=== PATIENT | female | born 1950 | race Caucasian/White ===

== ENCOUNTER → 2017-02-17 | Outpatient (CLI) | payer MEDICARE, OTHER | END | disposition home or self-care (01) | LOC: GMAH 14:02 | PROVIDERS: ATTEND Family Medicine | DX: E03.9 Hypothyroidism, unspecified (principal); E78.2 Mixed hyperlipidemia ==

== ENCOUNTER → 2017-02-23 | Outpatient (CLI) | payer MEDICARE, OTHER ==
--- NOTE | 2017-02-24 11:06 | US ---
EXAM DESCRIPTION: Carotid Duplex: Ultrasound. CLINICAL HISTORY: OCCLUSION AND STENOSIS OF LT CAROTID COMPARISON: 3-D breast tomosynthesis screening mammogram on the same visit. TECHNIQUE: Transcutaneous scanning utilizing 2-dimensional and Doppler modes to evaluate the bilateral carotid systems and vertebral arteries. Percentage of diameter of stenosis or no stenosis recorded will be based upon NASCET criteria. FINDINGS: Peak systolic/end diastolic (CM-Sec) CCA Right 80/9 Left 106/24. ICA Right proximal 85/21, mid 69/17. Left proximal 48/17, mid 64/19. Vertebral Right 40/10 Left 48/10. ECA (PS Only) Right 115 left 64. ICA/CCA peak systolic ratio: Right 1.1 Left 0.6 ICA/CCA end diastolic ratio: Right 2.4 Left 0.8 Moderate amount of calcified plaques in the common carotid bulbs bilaterally. Spectral broadening distal right ICA. Area stenosis of right CCA bulb 20%, diameter stenosis 41%. Area stenosis in the proximal right ICA 48%; diameter stenosis 40 %. Spectral broadening in the entire left ICA. IMPRESSION: 1. Doppler evaluation of the bilateral carotid systems and vertebral arteries shows no hemodynamically significant stenoses. 2. Moderate calcified plaque seen in the carotid arteries bilaterally. Bilateral vertebral arteries showed antegrade-cephalad flow. Electronically signed by: Enrique Muse MD 02/24/2017 11:05 AM CDT
--- NOTE | 2017-02-25 13:24 | MAM ---
EXAM DESCRIPTION: 3D Screening BILATERAL CLINICAL HISTORY: 66 yearsFemaleSCREENING no complaints. No family history of breast cancer. Postmenopausal. Taking HRT less than five years ago. Bilateral benign breast biopsies.. COMPARISON: 2-D digital screening bilateral study 02/11/2016.. Report from prior examination also reviewed. TECHNIQUE: Bilateral CC and MLO projection full-field images, 3-D tomosynthesis digital mammographic technique. Also bilateral synthesized CC/ MLO full-field images. CAD not utilized. FINDINGS: The breast parenchymal density pattern is: Scattered areas of fibroglandular density. No skin thickening or nipple retraction small bilateral axillary lymph nodes. Bilateral scattered solitary microcalcifications. Bilateral groups of heterogeneous calcifications. Bilateral vascular calcifications. Focal asymmetry in the retroareolar left breast, 3 cm from the nipple at the 1200 clock position. Not associated with microcalcifications. Biopsy site marker in the middle third of the left breast medially at 900 clock position. No focal, stellate mass or density, focal asymmetry , and no suspicious microcalcifications right breast. IMPRESSION: BI-RADS CATEGORY: 0 - INCOMPLETE- Need additional imaging evaluation. FOLLOW-UP: Recall for additional imagin-D tomosynthesis full field left breast LM image with spot compression retroareolar breast. Followed by targeted left breast ultrasound retroareolar region.. Written communication concerning the IMPRESSION and Follow-up, will be mailed to the patient and referring health care provider. Electronically signed by: Enrique Muse MD 02/25/2017 1:22 PM CDT
== END | disposition home or self-care (01) ==
LOC: US 16:39
PROVIDERS: ATTEND Family Medicine
DX: Z12.31 Encounter for screening mammogram for malignant neoplasm of breast (principal); I65.22 Occlusion and stenosis of left carotid artery
CPT/HCPCS: 77063; 93880; G0202

== ENCOUNTER → 2017-03-23 | Outpatient (CLI) | payer MEDICARE, OTHER ==
--- NOTE | 2017-03-23 17:16 | MAM ---
EXAM DESCRIPTION: 3D Diagnostic, Left: Digital Mammography CLINICAL HISTORY: 66 yearsFemaleABNORMAL MAMMOGRAM . Focal asymmetry retroareolar left breast. Prior left breast benign biopsy. COMPARISON: 3-D tomosynthesis screening bilateral examination 02/23/2017. Targeted left breast ultrasound following this examination. Reports from prior examinations also reviewed. TECHNIQUE: Left breast LM projection full-field images, 3-D tomosynthesis digital mammographic technique. Also left breast synthesized LM full-field images. 2-D digital spot compression retroareolar left breast in the LM and CC projections. CAD not utilized. FINDINGS: The breast parenchymal density pattern is: Scattered areas of fibroglandular density. No skin thickening or nipple retraction no mass density or focal asymmetry on the spot compression images. ULTRASOUND: Scanning of the 1200 clock position of the left breast up to 2 cm from the nipple. Well-defined well-circumscribed hypoechoic mass measuring 12 x 9 x 5 mm. Central echogenicity but not vascular. Mixed posterior acoustic features. Parallel orientation. Consistent with a lymph node. No discrete solid mass or cyst. No skin thickening or parenchymal edema. No large calcifications. IMPRESSION: BI-RADS CATEGORY: 2 - BENIGN FINDINGS. FOLLOW UP: Return to routine digital bilateral screening, one year interval from February 2017. The FINDINGS and the follow-up plan were reviewed in person with the patient after the examination. Written communication explaining the IMPRESSION and follow-up will be mailed to the patient and referring care provider. According to the [employer], yearly mammograms are recommended starting at age 40 and continuing as long as a woman is in good health. Any breast change noted on a breast self-exam should be reported promptly to the patient's healthcare provider. Breast MRI is recommended for women with an approximately 20-25% or greater lifetime risk of breast cancer, including women with a strong family history of breast or ovarian cancer and women who have been treated for Hodgkin's disease. A negative mammographic report should not delay tissue diagnosis in patients with significant clinical history or physical findings. Extremely dense breast tissue limits the sensitivity of digital mammography. Electronically signed by: Enrique Muse MD 03/23/2017 5:15 PM DIRECTOR OF PRODUCT MARKETING
--- NOTE | 2017-03-24 08:17 | US ---
EXAM DESCRIPTION: Breast,Left: Ultrasound CLINICAL HISTORY: 66 yearsFemaleABNORMAL MAMMO . Focal asymmetry in the retroareolar left breast. COMPARISON: Digital 3-D tomosynthesis diagnostic left breast on this visit. 3-D tomosynthesis bilateral screening study 02/23/2017. TECHNIQUE: Transcutaneous scanning of the anterior retroareolar upper left breast utilizing two-dimensional and Doppler modes. Scanning performed by the hair spinner and Dr. Muse. FINDINGS: Scanning of the 1200 clock position of the left breast up to 2 cm from the nipple. Well-defined well-circumscribed hypoechoic mass measuring 12 x 9 x 5 mm. Central echogenicity but not vascular. Mixed posterior acoustic features. Parallel orientation. Consistent with a lymph node. No discrete solid mass or cyst. No skin thickening or parenchymal edema. No large calcifications. IMPRESSION: 1. Bi-Rads Category 2: Benign. 2. Please refer to 3-D tomosynthesis diagnostic left breast examination and report today. The FINDINGS and the follow-up plan were reviewed in person with the patient after the examination. Written communication explaining the IMPRESSION and follow-up will be mailed to the patient and referring care provider. Electronically signed by: Enrique Muse MD 03/24/2017 8:15 AM SECRETARY
== END | disposition home or self-care (01) ==
LOC: MAMMO 14:50
PROVIDERS: ATTEND Family Medicine
DX: R92.8 Other abnormal and inconclusive findings on diagnostic imaging of breast (principal)
CPT/HCPCS: 76641; G0206; G0279

== ENCOUNTER → 2018-02-24 | Outpatient (CLI) | payer MEDICARE, OTHER ==
--- NOTE | 2018-02-25 14:07 | MAM ---
EXAM DESCRIPTION: 3D Screening BILATERAL : Digital Mammography. CLINICAL HISTORY: 67 years Female SCREENING . No complaints. No family history of personal history of breast cancer. Childbirth. Postmenopausal 7 years. Has taken HRT less than 5 years ago. Bilateral breast biopsies benign. Lifetime risk of developing breast cancer (Tyrer-Cuzick model)(%): Not calculated COMPARISON: Bilateral screening digital breast tomosynthesis 02/23/2017. TECHNIQUE: Bilateral CC and MLO projection full-field images, Digital tomosynthesis mammographic technique. Bilateral digital 2-D full-field MLO images. CAD not utilized. FINDINGS: The breast parenchymal density pattern is: Heterogeneously dense breast tissue, which may obscure small masses. No skin thickening or nipple retraction. Bilateral vascular calcifications. Bilateral solitary microcalcifications. No new focal, stellate mass or density, focal asymmetry , and no suspicious microcalcifications bilaterally. Stable mammograms compared to prior study. IMPRESSION: Benign exam. BIRAD CATEGORY: 2 BENIGN FINDINGS. RECOMMENDATIONS: FOLLOW UP: Routine digital bilateral screening, one year interval from February 2018. Written communication explaining the IMPRESSION and follow-up, will be mailed to the patient and referring health care provider. According to the [employer], yearly mammograms are recommended starting at age 40 and continuing as long as a woman is in good health. Any breast change noted on a breast self-exam should be reported promptly to the patient's healthcare provider. Breast MRI is recommended for women with an approximately 20-25% or greater lifetime risk of breast cancer, including women with a strong family history of breast or ovarian cancer and women who have been treated for Hodgkin's disease. A negative mammographic report should not delay tissue diagnosis in patients with significant clinical history or physical findings. Extremely dense breast tissue limits the sensitivity of digital mammography. Electronically signed by: Enrique Muse MD 02/25/2018 2:06 PM CDT
== END ==
LOC: MAMMO 14:30
PROVIDERS: ATTEND Family Medicine
DX: Z12.31 Encounter for screening mammogram for malignant neoplasm of breast (principal)

== ENCOUNTER → 2018-03-21 | Outpatient (CLI) | payer OTHER | LOC: GMAH 19:02 | PROVIDERS: ATTEND Family Medicine | DX: I10 Essential (primary) hypertension (principal); E78.2 Mixed hyperlipidemia ==